=== PATIENT | female | born 2005 | race Caucasian/White ===

== ENCOUNTER 2024-04-19 06:33 | Outpatient (REF) | payer OTHER, SELFPAY ==
--- NOTE | ~2024-04-19 | US_ITS ---
EXAMINATION: US PELVIS CLINICAL INFORMATION: Menorrhagia and dysmenorrhea. LMP 03/30/2024. COMPARISON: None available. TECHNIQUE: Ultrasound of the pelvis is performed using both transabdominal and transvaginal transducers along with Doppler. Transvaginal imaging is performed due to inadequate visualization transabdominally. FINDINGS: Limited evaluation due to body habitus and shadowing from overlying bowel gas. Retroverted uterus with normal morphology measuring 8.3 x 3.6 x 5.2 cm. No uterine mass. The endometrium is not well seen, within this limitation the visualized portions are homogeneous and normal in thickness measuring 0.2 cm. The ovaries are not well visualized on the transvaginal examination and are partially seen transabdominally with overall a normal morphology. The right ovary measures approximately 1.8 x 3 x 2 cm (5 mL) and the left ovary measures approximately 2.8 x 1.8 x 1.7 cm (4.5 mL). No discrete adnexal mass. No free fluid. US/US pelvic and transvaginal IMPRESSION: Within limitations, no significant sonographic abnormality. Further correlation with pelvic MRI as clinically warranted. Electronically signed by: Kayley Manzano MD 04/19/2024 04:54 PM EDT
== END 2024-04-19 06:34 | disposition home or self-care (01) ==
LOC: HO.UMASIMG 06:33
PROVIDERS: Visit Provider Nurse Practitioner Women's Health
DX: N92.0 Excessive and frequent menstruation with regular cycle (principal); N94.5 Secondary dysmenorrhea
CPT/HCPCS: 76830; 76856